=== PATIENT | female | born 1960 | race Caucasian/White ===

== ENCOUNTER 2019-03-21 14:29 | Observation (INO) ==
[2019-03-21] MEDS ORDERED: ALBUTEROL NEB SOLN 5 MG/ML 20 ML/BOTTLE CONT NEB STA (15:26)
[2019-03-21] MEDS ORDERED: methylPREDNISolone SOD SUC 125 MG/2 ML VIAL IV STA (15:29)
[2019-03-21] MEDS ORDERED: LEVOFLOXACIN INJ 500 MG in PREMIX 1 EACH IV STA (15:29)
[2019-03-21 15:51] LABS: Basophils # 0.1 10*3/uL (0.0-0.2); Basophils % 1.1 % (0.0-0.8); Eosinophils % 0.3 % (0.00-10.9); Hematocrit 42.3 VOL% (35.7-47.0); Immature Granulocytes % 0.3 %; Immature Granulocytes Absolute 0.02 #; Lymphocytes # 1.3 10*3/uL (1.4-4.0); Lymphocytes % 20.6 % (21.3-54.2); Mean Corpuscular HGB Conc 33.1 GM/DL (32-36); Mean Corpuscular Volume 92.6 FL (87-102); Mean Platelet Volume 9.9 FL (9.6-12.0); Monocytes % 9.7 % (1.7-12.7); Platelet Count 272 T/CUMM (130-400); Red Blood Count 4.57 MC/CUMM (3.8-5.5); Red Cell Distribution Width 14.7 % (9.3-17.3); White Blood Count 6.4 T/CUMM (4-12)
[2019-03-21 16:10] LABS: PT Patient Result 10.4 SECS (9.6-12.2); Partial Thromboplastin Time 29.2 SECS (20.8-36.0)
[2019-03-21] MEDS ORDERED: ALBUTEROL 2.5 MG/3 ML NEB RESP TX PRN (16:11)
[2019-03-21] MEDS ORDERED: ACETAMINOPHEN 325 MG TABLET PO PRN (16:11)
[2019-03-21] MEDS ORDERED: ONDANSETRON 4 MG/2 ML VIAL IV PRN (16:11)
[2019-03-21 16:15] LABS: Albumin 3.7 G/DL (3.4-5.0); Bilirubin,Total 0.5 MG/DL (0.2-1.0); Calcium 9.4 MG/DL (8.5-10.1); Total Protein 7.1 G/DL (6.4-8.3)
[2019-03-21] MEDS ORDERED: DEXTROSE 10% 250 ML BAG IV PRN (16:45)
[2019-03-21] MEDS ORDERED: GLUCAGON 1 MG VIAL IM PRN (16:45)
[2019-03-21] MEDS: BENZONATATE 100 MG CAPSULE PO PRN (18:37)
[2019-03-21] MEDS: INSULIN REGULAR 100 UNIT/ML SUBCUT SCH (20:01)
[2019-03-21] MEDS: ALBUTEROL/IPRATROPIUM 3 ML NEB RESP TX SCH (20:20)
[2019-03-21] MEDS: ZALEPLON 5 MG CAPSULE PO PRN (20:59)
[2019-03-21] MEDS: traMADol 50 MG TABLET PO SCH (20:59)
[2019-03-21] MEDS: GABAPENTIN 300 MG CAPSULE PO SCH (20:59)
[2019-03-21] MEDS: MONTELUKAST 10 MG TABLET PO SCH (20:59)
[2019-03-21] MEDS: ENOXAPARIN 40 MG/0.4 ML SYRINGE SUBCUT SCH (20:59)
[2019-03-21] MEDS: ATORVASTATIN 20 MG TABLET PO SCH (20:59)
[2019-03-21] MEDS ORDERED: FLUTICASONE/SALMETEROL 250-50 DISKUS 14 DOSE INH SCH (21:00)
[2019-03-21] MEDS: methylPREDNISolone SOD SUC 40 MG/1 ML VIAL IV SCH (22:27)
[2019-03-22] MEDS: ALBUTEROL/IPRATROPIUM 3 ML NEB RESP TX SCH ×4 (02:08→19:02)
[2019-03-22 06:01] LABS: Basophils % 0.2 % (0.0-0.8); Hematocrit 43.3 VOL% (35.7-47.0); Hemoglobin 14.1 GM/DL (12.0-16.0); Immature Granulocytes % 0.4 %; Immature Granulocytes Absolute 0.02 #; Lymphocytes # 0.4 10*3/uL (1.4-4.0); Lymphocytes % 8.8 % (21.3-54.2); Mean Corpuscular HGB Conc 32.6 GM/DL (32-36); Mean Corpuscular Volume 92.7 FL (87-102); Mean Platelet Volume 10.5 FL (9.6-12.0); Neutrophils % 89.6 % (38.7-73.9); Platelet Count 285 T/CUMM (130-400); Red Blood Count 4.67 MC/CUMM (3.8-5.5); Red Cell Distribution Width 14.6 % (9.3-17.3); White Blood Count 4.8 T/CUMM (4-12)
[2019-03-22] MEDS: methylPREDNISolone SOD SUC 40 MG/1 ML VIAL IV SCH ×4 (06:12→22:30)
[2019-03-22] MEDS: LEVOTHYROXINE 100 MCG TABLET PO SCH (06:12)
[2019-03-22 06:16] LABS: Alanine Aminotransferase 9 U/L (13-56); Albumin 3.3 G/DL (3.4-5.0); Alkaline Phosphatase 83 U/L (45-117); Aspartate Amino Transferase 13 U/L (0-37); Bilirubin,Total < 0.39 MG/DL (0.2-1.0); Blood Urea Nitrogen 7 MG/DL (7-18); Calcium 9.5 MG/DL (8.5-10.1); Estimated Glom Filtration Rate 79 ML/MIN; Glucose 151 MG/DL (74-106); Total Protein 7.5 G/DL (6.4-8.3)
[2019-03-22 07:06] LABS: Band Neutrophils 2 % (0-10); Lymphocytes 5 % (20-55); Microcytosis Slight; Segmented Neutrophils 92 % (50-85); Total Cells Counted 100
[2019-03-22 07:07] LABS: Ovalocytes Slight; Platelet Estimate Normal
[2019-03-22 07:55] LABS: Apearance,Urine CLEAR (Clear); Bilirubin,Urine Negative (Negative); Blood, Urine Negative (Negative); Glucose,Urine (UA) Negative (Negative); Ketones,Urine 5 mg/dL (Negative); Mucus,Urine Occasional /LPF (Occasional); Nitrite,Urine Negative (Negative); Protein,Urine Negative; RBC,Urine 2 /HPF (0-4); Squamous Epithelial Cell,Urine Occasional /HPF (0-10); Urine Color Yellow (Yellow); Urine Specific Gravity 1.013 (1.001-1.035); Urine Urobilinogen < 2.0 EU/DL (0.2-1.0); WBC,Urine 1 /HPF (0-6)
[2019-03-22] MEDS: INSULIN REGULAR 100 UNIT/ML SUBCUT SCH ×4 (09:03→20:38)
[2019-03-22] MEDS: BUDESONIDE/FORMOTEROL 160-4.5 INHALER 6 GM INH SCH (09:03)
[2019-03-22] MEDS: MAGNESIUM OXIDE 400 MG TABLET PO SCH (09:04)
[2019-03-22] MEDS: FLUTICASONE 50 MCG NASAL SPRAY 16 GM BOTTLE BOTH NARES SCH (09:04)
[2019-03-22] MEDS: PANTOPRAZOLE 40 MG TABLET PO SCH (09:05)
[2019-03-22] MEDS: ESCITALOPRAM 10 MG TABLET PO SCH (09:05)
[2019-03-22] MEDS: traMADol 50 MG TABLET PO SCH ×3 (09:05→20:33)
[2019-03-22] MEDS: BENZONATATE 100 MG CAPSULE PO PRN ×3 (09:05→20:40)
[2019-03-22] MEDS: LOSARTAN/HCTZ 50-12.5 MG TABLET PO SCH (09:05)
[2019-03-22] MEDS: FEXOFENADINE 180 MG TABLET PO SCH (09:05)
[2019-03-22] MEDS: ASPIRIN EC 81 MG TABLET PO SCH (09:05)
[2019-03-22] MEDS: MELOXICAM 7.5 MG TABLET PO SCH (09:06)
[2019-03-22] MEDS: NICOTINE 21 MG/24 HR PATCH TRANSDERM SCH (09:58)
[2019-03-22] MEDS ORDERED: LEVOFLOXACIN INJ 500 MG in PREMIX 1 EACH IV SCH (17:00)
[2019-03-22] MEDS: MONTELUKAST 10 MG TABLET PO SCH (20:33)
[2019-03-22] MEDS: GABAPENTIN 300 MG CAPSULE PO SCH (20:33)
[2019-03-22] MEDS: ENOXAPARIN 40 MG/0.4 ML SYRINGE SUBCUT SCH (20:33)
[2019-03-22] MEDS: ATORVASTATIN 20 MG TABLET PO SCH (20:33)
[2019-03-22] MEDS: ZALEPLON 5 MG CAPSULE PO PRN (20:36)
[2019-03-23] MEDS: ALBUTEROL/IPRATROPIUM 3 ML NEB RESP TX SCH ×3 (00:14→13:28)
[2019-03-23] MEDS: methylPREDNISolone SOD SUC 40 MG/1 ML VIAL IV SCH ×2 (05:02→11:34)
[2019-03-23 05:51] LABS: Basophils % 0.1 % (0.0-0.8); Hematocrit 41.2 VOL% (35.7-47.0); Hemoglobin 13.5 GM/DL (12.0-16.0); Immature Granulocytes % 0.9 %; Immature Granulocytes Absolute 0.09 #; Lymphocytes # 0.6 10*3/uL (1.4-4.0); Lymphocytes % 5.9 % (21.3-54.2); Mean Corpuscular HGB Conc 32.8 GM/DL (32-36); Mean Corpuscular Volume 92.4 FL (87-102); Monocytes % 4.4 % (1.7-12.7); Neutrophils % 88.7 % (38.7-73.9); Platelet Count 273 T/CUMM (130-400); Red Blood Count 4.46 MC/CUMM (3.8-5.5); Red Cell Distribution Width 14.6 % (9.3-17.3); White Blood Count 10.6 T/CUMM (4-12)
[2019-03-23] MEDS: LEVOTHYROXINE 100 MCG TABLET PO SCH (06:01)
[2019-03-23 06:05] LABS: Calcium 9.3 MG/DL (8.5-10.1); Osmolality,Calculated 281.5 MOS/KG (273-304)
[2019-03-23 09:09] VITALS: BP 133/69
[2019-03-23] MEDS: INSULIN REGULAR 100 UNIT/ML SUBCUT SCH ×2 (09:58→11:35)
[2019-03-23] MEDS: BUDESONIDE/FORMOTEROL 160-4.5 INHALER 6 GM INH SCH (09:59)
[2019-03-23] MEDS: FLUTICASONE 50 MCG NASAL SPRAY 16 GM BOTTLE BOTH NARES SCH (09:59)
[2019-03-23] MEDS: NICOTINE 21 MG/24 HR PATCH TRANSDERM SCH (10:00)
[2019-03-23] MEDS: MELOXICAM 7.5 MG TABLET PO SCH (10:01)
[2019-03-23] MEDS: FEXOFENADINE 180 MG TABLET PO SCH (10:01)
[2019-03-23] MEDS: traMADol 50 MG TABLET PO SCH (10:02)
[2019-03-23] MEDS: BENZONATATE 100 MG CAPSULE PO PRN (10:03)
[2019-03-23] MEDS: LOSARTAN/HCTZ 50-12.5 MG TABLET PO SCH (10:03)
[2019-03-23] MEDS: MAGNESIUM OXIDE 400 MG TABLET PO SCH (10:03)
[2019-03-23] MEDS: ASPIRIN EC 81 MG TABLET PO SCH (10:03)
[2019-03-23] MEDS: ESCITALOPRAM 10 MG TABLET PO SCH (10:04)
[2019-03-23] MEDS: PANTOPRAZOLE 40 MG TABLET PO SCH (10:04)
== END 2019-03-23 15:21 | disposition home or self-care (01) ==
LOC: N.ED 14:29 → N.EDINP 14:29 → N.2W 16:35
PROVIDERS: ADMIT Internal Medicine; ATTEND Internal Medicine

== ENCOUNTER 2022-07-02 22:23 | Inpatient (IN) ==
[2022-07-02 23:50] LABS: Basophils # 0.1 10*3/uL (0.0-0.2); Basophils % 0.4 % (0.0-0.8); Eosinophils # 0.1 10*3/uL (0.0-0.87); Eosinophils % 0.5 % (0.00-10.9); Hematocrit 41.3 VOL% (35.7-47.0); Hemoglobin 13.6 GM/DL (12.0-16.0); Immature Granulocytes % 0.5 %; Immature Granulocytes Absolute 0.06 #; Lymphocytes # 1.5 10*3/uL (1.4-4.0); Lymphocytes % 12.5 % (21.3-54.2); Mean Corpuscular HGB Conc 32.9 GM/DL (32-36); Mean Corpuscular Volume 93.4 FL (87-102); Mean Platelet Volume 10.3 FL (9.6-12.0); Monocytes # 1.5 10*3/uL (0.11-0.8); Monocytes % 12.4 % (1.7-12.7); Neutrophils % 73.7 % (38.7-73.9); Platelet Count 229 T/CUMM (130-400); Red Blood Count 4.42 MC/CUMM (3.8-5.5); Red Cell Distribution Width 15.2 % (9.3-17.3); White Blood Count 12.24 T/CUMM (4-12)
[2022-07-02 23:55] LABS: ABG Base Excess 0.3 MMOL/L (-2.5-2.5); ABG HCO3 24.6 MMOL/L (20-26); ABG Oxygen Saturation 91.8 % (95-100); ABG PCO2 51.6 MM HG (35-48); ABG PH 7.331 (7.35-7.45); ABG PO2 66.4 MM HG (80-95); ABG TCO2 23.9 MMOL/L (23-27)
[2022-07-03] LABS: INR 0.9; PT Patient Result 10.2 SECS (10.1-12.1)
[2022-07-03 00:10] LABS: Alanine Aminotransferase 13 U/L (13-56); Albumin 3.5 G/DL (3.4-5.0); Alkaline Phosphatase 79 U/L (45-117); Aspartate Amino Transferase 15 U/L (0-37); Bilirubin,Total < 0.39 MG/DL (0.20-1.00); Blood Urea Nitrogen 11 MG/DL (7-18); Calcium 9.4 MG/DL (8.5-10.1); Carbon Dioxide 26 MMOL/L (21-32); Chloride 108 MMOL/L (98-107); Glucose 103 MG/DL (74-106); Osmolality,Calculated 279.3 MOS/KG (273-304); Sodium 141 MMOL/L (136-145); Total Protein 7.3 G/DL (6.4-8.2)
[2022-07-03] MEDS ORDERED: LEVOFLOXACIN INJ 500 MG/100 ML PREMIX IV ONE (00:19)
[2022-07-03] MEDS ORDERED: methylPREDNISolone SOD SUC 125 MG/2 ML VIAL IV STA (00:22)
[2022-07-03] MEDS ORDERED: ALBUTEROL/IPRATROPIUM 3 ML NEB RESP TX STA (00:22)
[2022-07-03] MEDS ORDERED: GLUCAGON 1 MG VIAL IM PRN (01:20)
[2022-07-03] MEDS ORDERED: ONDANSETRON 4 MG/2 ML VIAL IV PRN (01:20)
[2022-07-03] MEDS ORDERED: hydrALAZINE 20 MG/1 ML VIAL IV PRN (01:20)
[2022-07-03] MEDS ORDERED: NICOTINE 21 MG/24 HR PATCH TRANSDERM PRN (01:20)
[2022-07-03] MEDS ORDERED: DEXTROSE 10% 250 ML BAG IV PRN (01:34)
[2022-07-03] MEDS ORDERED: methylPREDNISolone SOD SUC 40 MG/1 ML VIAL IV SCH ×2 (02:00→14:00)
[2022-07-03] MEDS ORDERED: cefTRIAXone 1,000 MG in SODIUM CHLORIDE 0.9% 100 ML IV SCH (02:00)
[2022-07-03] MEDS: SODIUM CHLORIDE 0.9% 1,000 ML IV SCH ×2 (03:50→16:46)
[2022-07-03 04:50] LABS: Basophils # 0.1 10*3/uL (0.0-0.2); Basophils % 0.4 % (0.0-0.8); Eosinophils % 0.2 % (0.00-10.9); Hemoglobin 13.7 GM/DL (12.0-16.0); Immature Granulocytes % 0.6 %; Immature Granulocytes Absolute 0.07 #; Lymphocytes # 0.9 10*3/uL (1.4-4.0); Lymphocytes % 7.2 % (21.3-54.2); Mean Corpuscular HGB Conc 33.4 GM/DL (32-36); Mean Corpuscular Volume 94.5 FL (87-102); Mean Platelet Volume 10.1 FL (9.6-12.0); Monocytes # 1.3 10*3/uL (0.11-0.8); Monocytes % 10.7 % (1.7-12.7); Neutrophils % 80.9 % (38.7-73.9); Platelet Count 239 T/CUMM (130-400); Red Blood Count 4.34 MC/CUMM (3.8-5.5); Red Cell Distribution Width 15.2 % (9.3-17.3); White Blood Count 11.96 T/CUMM (4-12)
[2022-07-03 05:15] LABS: Alanine Aminotransferase 11 U/L (13-56); Albumin 3.2 G/DL (3.4-5.0); Alkaline Phosphatase 78 U/L (45-117); Aspartate Amino Transferase 13 U/L (0-37); Bilirubin,Total < 0.39 MG/DL (0.20-1.00); Blood Urea Nitrogen 10 MG/DL (7-18); Calcium 9.7 MG/DL (8.5-10.1); Carbon Dioxide 25 MMOL/L (21-32); Chloride 108 MMOL/L (98-107); Glucose 124 MG/DL (74-106); Osmolality,Calculated 280.3 MOS/KG (273-304); Sodium 141 MMOL/L (136-145); Total Protein 7.9 G/DL (6.4-8.2)
[2022-07-03] MEDS: INSULIN LISPRO 100 UNIT/ML SUBCUT SCH ×4 (07:59→20:34)
[2022-07-03] MEDS: ALBUTEROL/IPRATROPIUM 3 ML NEB RESP TX SCH ×4 (08:04→23:57)
[2022-07-03] MEDS: LEVOTHYROXINE 100 MCG TABLET PO SCH (09:20)
[2022-07-03] MEDS: ASCORBIC ACID 500 MG TABLET PO SCH (10:11)
[2022-07-03] MEDS: PANTOPRAZOLE 40 MG TABLET PO SCH (10:11)
[2022-07-03] MEDS: DULoxetine 30 MG CAPSULE PO SCH (10:11)
[2022-07-03] MEDS: MAGNESIUM OXIDE 400 MG TABLET PO SCH (10:11)
[2022-07-03] MEDS: NEBIVOLOL 5 MG TABLET PO SCH (10:11)
[2022-07-03] MEDS: THEOPHYLLINE ER 300 MG TABLET PO SCH ×2 (10:12→20:33)
[2022-07-03] MEDS: FLUTICASONE 50 MCG NASAL SPRAY 16 GM BOTTLE BOTH NARES SCH ×2 (10:12→20:33)
[2022-07-03] MEDS: LOSARTAN 25 MG TABLET PO SCH (10:12)
[2022-07-03] MEDS: ASPIRIN EC 81 MG TABLET PO SCH (10:12)
[2022-07-03] MEDS: ENOXAPARIN 40 MG/0.4 ML SYRINGE SUBCUT SCH (10:16)
[2022-07-03] MEDS: methylPREDNISolone SOD SUC 40 MG/1 ML VIAL IV SCH ×2 (13:24→20:33)
[2022-07-03] MEDS: AZITHROMYCIN INJ 500 MG in SODIUM CHLORIDE 0.9% 250 ML IV SCH (13:25)
[2022-07-03] MEDS: CHOLECALCIFEROL 5,000 UNIT TABLET PO SCH (15:43)
[2022-07-03] MEDS: cefTRIAXone 2,000 MG in SODIUM CHLORIDE 0.9% 100 ML IV SCH (16:46)
[2022-07-03] MEDS: ATORVASTATIN 20 MG TABLET PO SCH (20:46)
[2022-07-04] MEDS ORDERED: LEVOFLOXACIN INJ 750 MG/150 ML PREMIX IV SCH (02:00)
[2022-07-04] MEDS: methylPREDNISolone SOD SUC 40 MG/1 ML VIAL IV SCH ×3 (03:42→21:00)
[2022-07-04] MEDS: LEVOTHYROXINE 100 MCG TABLET PO SCH (05:30)
[2022-07-04 06:14] LABS: Basophils % 0.2 % (0.0-0.8); Hematocrit 38.6 VOL% (35.7-47.0); Hemoglobin 12.6 GM/DL (12.0-16.0); Immature Granulocytes % 1.2 %; Immature Granulocytes Absolute 0.12 #; Lymphocytes % 9.6 % (21.3-54.2); Mean Corpuscular HGB Conc 32.6 GM/DL (32-36); Mean Corpuscular Volume 93.9 FL (87-102); Mean Platelet Volume 10.5 FL (9.6-12.0); Monocytes # 0.5 10*3/uL (0.11-0.8); Monocytes % 4.5 % (1.7-12.7); Neutrophils % 84.5 % (38.7-73.9); Platelet Count 228 T/CUMM (130-400); Red Blood Count 4.11 MC/CUMM (3.8-5.5); Red Cell Distribution Width 15.1 % (9.3-17.3); White Blood Count 9.93 T/CUMM (4-12)
[2022-07-04 06:40] LABS: Calcium 9.6 MG/DL (8.5-10.1); Osmolality,Calculated 287.1 MOS/KG (273-304); Potassium 3.8 MMOL/L (3.5-5.1)
[2022-07-04] MEDS: ALBUTEROL/IPRATROPIUM 3 ML NEB RESP TX SCH ×3 (06:50→19:17)
[2022-07-04] MEDS: INSULIN LISPRO 100 UNIT/ML SUBCUT SCH ×4 (07:30→21:02)
[2022-07-04] MEDS: PANTOPRAZOLE 40 MG TABLET PO SCH (09:15)
[2022-07-04] MEDS: CHOLECALCIFEROL 5,000 UNIT TABLET PO SCH (09:15)
[2022-07-04] MEDS: ENOXAPARIN 40 MG/0.4 ML SYRINGE SUBCUT SCH (09:15)
[2022-07-04] MEDS: DULoxetine 30 MG CAPSULE PO SCH (09:15)
[2022-07-04] MEDS: MAGNESIUM OXIDE 400 MG TABLET PO SCH (09:16)
[2022-07-04] MEDS: NEBIVOLOL 5 MG TABLET PO SCH (09:16)
[2022-07-04] MEDS: LOSARTAN 25 MG TABLET PO SCH (09:16)
[2022-07-04] MEDS: ASPIRIN EC 81 MG TABLET PO SCH (09:16)
[2022-07-04] MEDS: ASCORBIC ACID 500 MG TABLET PO SCH (09:16)
[2022-07-04] MEDS: FLUTICASONE 50 MCG NASAL SPRAY 16 GM BOTTLE BOTH NARES SCH ×2 (09:16→21:01)
[2022-07-04] MEDS: THEOPHYLLINE ER 300 MG TABLET PO SCH ×2 (09:16→21:01)
[2022-07-04] MEDS: AZITHROMYCIN INJ 500 MG in SODIUM CHLORIDE 0.9% 250 ML IV SCH (12:51)
[2022-07-04] MEDS: cefTRIAXone 2,000 MG in SODIUM CHLORIDE 0.9% 100 ML IV SCH (16:05)
[2022-07-04] MEDS: ATORVASTATIN 20 MG TABLET PO SCH (21:01)
[2022-07-05] MEDS: ALBUTEROL/IPRATROPIUM 3 ML NEB RESP TX SCH ×2 (00:44→07:30)
[2022-07-05] MEDS: methylPREDNISolone SOD SUC 40 MG/1 ML VIAL IV SCH (03:51)
[2022-07-05] MEDS: LEVOTHYROXINE 100 MCG TABLET PO SCH (05:31)
[2022-07-05 06:03] LABS: Calcium 9.5 MG/DL (8.5-10.1); Osmolality,Calculated 284.4 MOS/KG (273-304); Potassium 4.5 MMOL/L (3.5-5.1)
[2022-07-05] MEDS: INSULIN LISPRO 100 UNIT/ML SUBCUT SCH (07:17)
[2022-07-05 07:18] VITALS: BP 122/59
[2022-07-05] MEDS: DULoxetine 30 MG CAPSULE PO SCH (08:26)
[2022-07-05] MEDS: NEBIVOLOL 5 MG TABLET PO SCH (08:26)
[2022-07-05] MEDS: ENOXAPARIN 40 MG/0.4 ML SYRINGE SUBCUT SCH (08:26)
[2022-07-05] MEDS: CHOLECALCIFEROL 5,000 UNIT TABLET PO SCH (08:27)
[2022-07-05] MEDS: PANTOPRAZOLE 40 MG TABLET PO SCH (08:27)
[2022-07-05] MEDS: THEOPHYLLINE ER 300 MG TABLET PO SCH (08:27)
[2022-07-05] MEDS: ASPIRIN EC 81 MG TABLET PO SCH (08:28)
[2022-07-05] MEDS: MAGNESIUM OXIDE 400 MG TABLET PO SCH (08:28)
[2022-07-05] MEDS: FLUTICASONE 50 MCG NASAL SPRAY 16 GM BOTTLE BOTH NARES SCH (08:28)
[2022-07-05] MEDS: ASCORBIC ACID 500 MG TABLET PO SCH (08:28)
[2022-07-05] MEDS: LOSARTAN 25 MG TABLET PO SCH (08:28)
== END 2022-07-05 10:44 | disposition home or self-care (01) | DRG 193 ==
LOC: EDUNIT# → EDBD → N.ED 22:23 → N.EDINP 07-03 01:15 → SUATTDRO 07-03 01:15 → N.3E 07-03 14:37
PROVIDERS: ADMIT Emergency Medicine; ATTEND Internal Medicine